=== PATIENT | male | born 1930 | race Caucasian/White ===

== ENCOUNTER 2018-06-30 11:12 | Inpatient (IN) | payer SELFPAY ==
[2018-06-30] MEDS ORDERED: Nitroglycerin 100MG/250ML BOT 250 ML ONE (11:36)
[2018-06-30] MEDS ORDERED: Verapamil 5 MG/2 ML VIAL ONE (11:36)
--- NOTE | 2018-06-30 11:36 | RAD ---
AP CHEST: Date: 06/30/18 HISTORY: Chest pain. FINDINGS: The lungs are clear. No infiltrate seen. Heart size upper normal. Vascular markings upper normal with out evidence of edema or effusion. IMPRESSION: No acute process apparent. POS: TPC
[2018-06-30 11:38] LABS: #Basophils 0.1 thou/uL (0.0-0.2); #Eosinphils 0.1 thou/uL (0.0-0.7); #Lymphocytes 1.8 thou/uL (1.20-3.40); #Monocytes 0.5 thou/uL (0.11-0.59); %Basophils 0.5 % (0.0-1.0); %Eosinophils 0.5 % (0.0-10.0); %Lymphocytes 15.6 % (21.0-51.0); %Monocytes 4.4 % (0.0-10.0); Hemoglobin 13.3 g/dL (14.0-18.0); Mean Corpuscular HGB CONC 33.5 g/dL (32.0-36.0); Mean Corpuscular Volume 95.5 fL (78.0-98.0); Mean Platelet Volume 7.6 fL (7.4-10.4); Platelet Count 184 thou/uL (130-400); RBC Distribution Width 11.9 % (11.5-14.5); Red Blood Cell (RBC) Count 4.16 mill/uL (4.70-6.10); White Blood Cell (WBC) Count 11.4 thou/uL (4.8-10.8)
[2018-06-30 11:48] LABS: Prothrombin Time 13.7 SEC (12.0-14.7)
[2018-06-30 11:55] LABS: ALT (SGPT) 22 U/L (8-55); AST (SGOT) 95 U/L (5-34); Albumin 3.8 g/dL (3.4-4.8); Alkaline Phosphatase 56 U/L (40-150); Anion Gap 15 mmol/L (10-20); BUN (Urea Nitrogen) 26 mg/dL (8.4-25.7); Bilirubin, Total 0.5 mg/dL (0.2-1.2); Calc. Creatinine Clearance 0 mL/min (70-130); Calcium 8.9 mg/dL (7.8-10.44); Carbon Dioxide 20 mmol/L (23-31); Chloride 106 mmol/L (98-107); Estimated GFR-MDRD 47; Globulin 2.9 g/dL (2.4-3.5); Glucose 123 mg/dL (83-110); Potassium 4.2 mmol/L (3.5-5.1); Protein, Total 6.7 g/dL (5.8-8.1); Sodium 137 mmol/L (136-145)
[2018-06-30] MEDS ORDERED: Clopidogrel Bisulfate 300 MG TAB ONE (12:04)
[2018-06-30 12:05] LABS: CKMB 193.8 ng/mL (0-6.6)
[2018-06-30] MEDS ORDERED: Adenosine 6 MG/2 ML VIAL ONE (12:05)
[2018-06-30 12:12] LABS: PTT 173.5 SEC (22.9-36.1)
[2018-06-30 12:26] LABS: Troponin I 80.691 ng/mL (< 0.028)
[2018-06-30 14:11] VITALS: BMI 25.5
[2018-06-30] MEDS ORDERED: Iopamidol 370 76% 100 ML VIAL ONE (15:05)
[2018-06-30] MEDS ORDERED: Iopamidol 370 76% 50 ML VIAL FS ONE (15:05)
[2018-06-30] MEDS ORDERED: Morphine 4 MG/ML VIAL SLOW IVP PRN (17:54)
[2018-06-30] MEDS ORDERED: Nitroglycerin 0.4 MG TAB (25 Tab Bottle) SL PRN (17:54)
--- NOTE | 2018-06-30 18:05 | EKG ---
Test Reason : Blood Pressure : / mmHG Vent. Rate : 067 BPM Atrial Rate : 067 BPM P-R Int : 172 ms QRS Dur : 126 ms QT Int : 424 ms P-R-T Axes : 039 -49 -12 degrees QTc Int : 448 ms Sinus Rhythm with frequent premature ventricular contractions. Left axis deviation Non-specific intra-ventricular conduction block Septal infarct , age undetermined Abnormal ECG Confirmed by MARIEL LUJAN ([id number]) on 06/30/2018 6:05:04 PM Referred By: WALT Confirmed By:MARIEL LUJAN
[2018-06-30 19:20] LABS: CKMB 326.3 ng/mL (0-6.6)
[2018-06-30 19:21] LABS: Troponin I 341.822 ng/mL (< 0.028)
[2018-06-30] MEDS: Atorvastatin Calcium 40 MG TAB PO SCH (21:21)
--- NOTE | 2018-06-30 22:03 | HP ---
CHIEF COMPLAINT: Chest pain. HISTORY OF PRESENT ILLNESS: Mr. Spencer is a pleasant 87-year-old white gentleman who comes to the hospital, transferred from the [place] outpatient facility for an anterior ST-elevation OK. Mr. Spencer felt some chest burning earlier this morning, so he decided to go see his primary care doctor, Dr. Martins, saw him, did an EKG and found ST elevations anteriorly, so he gave him Plavix, aspirin, and TNK, and transferred him over for further care. On my evaluation, he was chest pain free, however, his STs were still elevated, so he was taken directly to the casting house laborer for further care. We chose to do a radial approach given his recent TNK administration. We found this 90% stenosis of the proximal LAD, which was successfully opened and stented. He did very well. He received a drug-eluting stent. He is not having any chest pain, tightness, or pressure. No shortness of breath. PAST MEDICAL HISTORY: He takes a thyroid medication. He is unsure of what it is for. He does not know if it is for hyper or hypothyroidism. PAST SURGICAL HISTORY: Bilateral cataract surgery. SOCIAL HISTORY: No alcohol, tobacco, or drugs. FAMILY HISTORY: No significant early coronary artery disease. His father had a CVA in his 80s. OUTPATIENT MEDICATIONS: Thyroid medication, unknown if it is methimazole or thyroxine. ALLERGIES: NO KNOWN DRUG ALLERGIES. REVIEW OF SYSTEMS: 12-point review of systems was done and was found to be negative other than stated in the history of present illness. PHYSICAL EXAMINATION: VITAL SIGNS: Temperature 97.6, pulse 66, respiratory rate 18, saturating 100% on 2 L nasal cannula. Blood pressure 130/85. GENERAL: Awake, alert, and oriented x3, in no distress. HEENT: Normocephalic, atraumatic. NECK: Supple. LUNGS: Clear. CARDIOVASCULAR: S1, S2. No S3 or S4. No murmurs. ABDOMEN: Soft. Positive bowel sounds. EXTREMITIES: No edema. SKIN: Warm and dry. LABORATORY WORK: Reviewed. CBC with white count 11, hemoglobin 13, hematocrit 39, platelet count 184. Coags reviewed. Chemistries were reviewed. Initial troponin was 80.9, up to 341.8 now with a CK-MB of 193, initially up to 326. His BUN was 22, creatinine was 1.4, GFR 47. Normal sodium and potassium. AST was high at 95, ALT 22, alkaline phosphatase was normal, albumin of 3.8. EKG was reviewed. ASSESSMENT: 1. Anterior ST-elevation myocardial infarction. 2. Status post thrombolytics. 3. Status post drug-eluting stent to the LAD. PLAN: 1. Continue dual antiplatelet therapy with Plavix and aspirin. 2. We will do a high dose statin and we will start a beta carrol and JOSE inhibitor as blood pressure allow in the next 24 to 48 hours. 3. Echocardiogram to be done. 4. Full code. 5. PPI for stress ulcer prophylaxis. 6. Lovenox subcu for DVT prophylaxis. Job ID: [id number]
[2018-07-01 00:58] LABS: CKMB 184.2 ng/mL (0-6.6); Critical Call CKMB RESULT DECREASING
[2018-07-01 01:14] LABS: Critical Call Chem Troponin I RESULT DECREASING; Troponin I 128.096 ng/mL (< 0.028)
[2018-07-01 04:44] LABS: #Eosinphils 0.2 thou/uL (0.0-0.7); #Lymphocytes 2.3 thou/uL (1.20-3.40); #Neutrophils 7.3 thou/uL (1.40-6.50); %Basophils 0.4 % (0.0-1.0); %Eosinophils 1.4 % (0.0-10.0); %Lymphocytes 21.4 % (21.0-51.0); %Neutrophils 67.8 % (42.0-75.0); Hemoglobin 12.6 g/dL (14.0-18.0); Mean Corpuscular HGB CONC 34.8 g/dL (32.0-36.0); Mean Platelet Volume 7.8 fL (7.4-10.4); Platelet Count 173 thou/uL (130-400); RBC Distribution Width 12.1 % (11.5-14.5); Red Blood Cell (RBC) Count 3.83 mill/uL (4.70-6.10); White Blood Cell (WBC) Count 10.7 thou/uL (4.8-10.8)
[2018-07-01 05:05] LABS: ALT (SGPT) 34 U/L (8-55); AST (SGOT) 164 U/L (5-34); Albumin 3.5 g/dL (3.4-4.8); Alkaline Phosphatase 45 U/L (40-150); Anion Gap 15 mmol/L (10-20); BUN (Urea Nitrogen) 22 mg/dL (8.4-25.7); Bilirubin, Total 0.7 mg/dL (0.2-1.2); Calc. Creatinine Clearance 44 mL/min (70-130); Calcium 8.6 mg/dL (7.8-10.44); Carbon Dioxide 22 mmol/L (23-31); Chloride 108 mmol/L (98-107); Cholesterol 156 mg/dl (< 200 Desired); Estimated GFR-MDRD 53; Globulin 2.5 g/dL (2.4-3.5); Glucose 108 mg/dL (83-110); HDL Cholesterol 39 mg/dL (>60 Neg Risk); LDL Cholesterol, Calculated 95 mg/dL; Potassium 3.8 mmol/L (3.5-5.1); Sodium 141 mmol/L (136-145); Triglycerides 109 mg/dL (Less than 150)
[2018-07-01] MEDS ORDERED: Prevnar 13-Val Conj/PF 0.5 ML SYRINGE IM ONE (09:00)
[2018-07-01] MEDS: Aspirin 325 MG TAB PO SCH (09:07)
[2018-07-01] MEDS: Enoxaparin Sodium 30 MG/0.3 ML SYRINGE SC SCH (09:07)
[2018-07-01] MEDS: Clopidogrel Bisulfate 75 MG TAB PO SCH (09:07)
[2018-07-01] MEDS: Atorvastatin Calcium 40 MG TAB PO SCH (19:50)
--- NOTE | 2018-07-01 21:08 | PDOC.CTH ---
Cardiology Progress Note - Subjective Doing better. No chest pain, tightness, pressure. - Objective Vital Signs Temp Pulse Pulse Pulse Resp BP BP 07/01/18 19:15 97.7 F 69 16 07/01/18 17:55 97.9 F 67 16 07/01/18 16:00 99.2 F 07/01/18 12:00 97.7 F 07/01/18 09:50 72 67 111/87 138/73 BP Pulse Ox 07/01/18 19:15 141/75 H 94 L 07/01/18 17:55 151/87 H 94 L 07/01/18 16:00 07/01/18 12:00 07/01/18 09:50 Admit Weight 163 lb 5.8 oz Weight 163 lb 5.8 oz 06/30/18 07/01/18 07/02/18 06:59 06:59 06:59 Intake Total 465 780 Output Total 1625 1000 Balance -1160 -220 - Physical Examination General/Neuro: alert & oriented x3, NAD Neck: no JVD present Lungs: CTA, unlabored respirations Heart: RRR Abdomen: NT/ND Extremities: other: (no edema) - Telemetry Telemetry Rhythm: NSR - Labs Result Diagrams: 07/01/18 04:12 07/01/18 04:12 Troponin/CKMB CK-MB (CK-2) 184.2 ng/mL (0-6.6) H* 07/01/18 00:26 Troponin I 128.096 ng/mL (< 0.028) H* 07/01/18 00:26 - Assessment/Plan 1. Acute anterior STEMI 2. s/p TPA and then ROCIO to the LAD. PLAN: - Will transition to Telemtry. - Continue HUMAIRA - Large MN based on troponins and CKMB. - Will add low dose Coreg.
[2018-07-02 05:07] LABS: #Eosinphils 0.2 thou/uL (0.0-0.7); #Monocytes 0.9 thou/uL (0.11-0.59); #Neutrophils 6.2 thou/uL (1.40-6.50); %Basophils 0.3 % (0.0-1.0); %Eosinophils 2.2 % (0.0-10.0); %Lymphocytes 21.8 % (21.0-51.0); %Monocytes 9.6 % (0.0-10.0); %Neutrophils 66.1 % (42.0-75.0); Hemoglobin 12.6 g/dL (14.0-18.0); Mean Corpuscular HGB CONC 34.3 g/dL (32.0-36.0); Mean Corpuscular Hemoglobin 32.6 pg (27.0-31.0); Mean Corpuscular Volume 94.8 fL (78.0-98.0); Platelet Count 170 thou/uL (130-400); Red Blood Cell (RBC) Count 3.86 mill/uL (4.70-6.10); White Blood Cell (WBC) Count 9.3 thou/uL (4.8-10.8)
[2018-07-02 05:28] LABS: Anion Gap 12 mmol/L (10-20); BUN (Urea Nitrogen) 19 mg/dL (8.4-25.7); Calc. Creatinine Clearance 45 mL/min (70-130); Calcium 8.3 mg/dL (7.8-10.44); Carbon Dioxide 25 mmol/L (23-31); Chloride 106 mmol/L (98-107); Estimated GFR-MDRD 54; Glucose 107 mg/dL (83-110); Potassium 3.9 mmol/L (3.5-5.1); Sodium 139 mmol/L (136-145)
--- NOTE | 2018-07-02 08:43 | PDOC.CTH ---
Cardiology Progress Note - Subjective No new issues. No chest pain, tightness ,pressure, SOB. He has been walking around without issues. - Objective Vital Signs Temp Pulse Resp BP Pulse Ox 07/02/18 08:00 98.3 F 93 18 115/68 92 L 07/02/18 04:00 98.4 F 78 16 99/70 93 L Admit Weight 163 lb 5.8 oz Weight 163 lb 5.8 oz 07/01/18 07/02/18 07/03/18 06:59 06:59 06:59 Intake Total 465 1030 Output Total 1625 1000 Balance -1160 30 - Physical Examination General/Neuro: alert & oriented x3, NAD Neck: no JVD present Lungs: CTA, unlabored respirations Heart: RRR Abdomen: NT/ND Extremities: other: (no edema) - Telemetry Telemetry Rhythm: NSR - Labs Result Diagrams: 07/02/18 04:29 07/02/18 04:29 Troponin/CKMB CK-MB (CK-2) 184.2 ng/mL (0-6.6) H* 07/01/18 00:26 Troponin I 128.096 ng/mL (< 0.028) H* 07/01/18 00:26 - Assessment/Plan 1. Acute anterior STEMI 2. s/p TPA and then ROCIO to the LAD. PLAN: - Echo pending. - Continue HUMAIRA - Large VT based on troponins and CKMB. - Cannot add ACEI due to borderline low BP. - Tolerating low dose coreg. - Continue high dose statins.
[2018-07-02] MEDS: Enoxaparin Sodium 30 MG/0.3 ML SYRINGE SC SCH (08:59)
[2018-07-02] MEDS: Aspirin 325 MG TAB PO SCH (08:59)
[2018-07-02] MEDS: Carvedilol 3.125 MG TAB PO SCH ×2 (08:59→16:33)
[2018-07-02] MEDS: Clopidogrel Bisulfate 75 MG TAB PO SCH (09:00)
[2018-07-02] MEDS: Atorvastatin Calcium 40 MG TAB PO SCH (19:48)
[2018-07-02] MEDS: Apixaban 2.5 MG TAB PO SCH (19:49)
[2018-07-03 05:12] LABS: #Eosinphils 0.2 thou/uL (0.0-0.7); #Lymphocytes 1.8 thou/uL (1.20-3.40); %Basophils 0.2 % (0.0-1.0); %Eosinophils 2.2 % (0.0-10.0); %Lymphocytes 18.1 % (21.0-51.0); %Neutrophils 69.4 % (42.0-75.0); Hemoglobin 12.9 g/dL (14.0-18.0); Mean Corpuscular Hemoglobin 33.3 pg (27.0-31.0); Mean Corpuscular Volume 95.3 fL (78.0-98.0); Mean Platelet Volume 7.8 fL (7.4-10.4); Platelet Count 171 thou/uL (130-400); RBC Distribution Width 11.9 % (11.5-14.5); Red Blood Cell (RBC) Count 3.87 mill/uL (4.70-6.10); White Blood Cell (WBC) Count 10.1 thou/uL (4.8-10.8)
[2018-07-03 05:32] LABS: Anion Gap 13 mmol/L (10-20); BUN (Urea Nitrogen) 22 mg/dL (8.4-25.7); Calc. Creatinine Clearance 38 mL/min (70-130); Calcium 8.5 mg/dL (7.8-10.44); Carbon Dioxide 27 mmol/L (23-31); Chloride 104 mmol/L (98-107); Estimated GFR-MDRD 44; Glucose 110 mg/dL (83-110); Potassium 3.9 mmol/L (3.5-5.1); Sodium 140 mmol/L (136-145)
[2018-07-03] MEDS: Clopidogrel Bisulfate 75 MG TAB PO SCH (09:26)
[2018-07-03] MEDS: Carvedilol 3.125 MG TAB PO SCH ×2 (09:27→17:31)
[2018-07-03] MEDS: Apixaban 2.5 MG TAB PO SCH (09:27)
[2018-07-03 15:51] VITALS: BP 116/75; TEMP 98.2
--- NOTE | 2018-07-04 02:56 | DIS ---
DATE OF ADMISSION: 06/30/2018 DATE OF DISCHARGE: 07/03/2018 DISCHARGE DIAGNOSES: 1. Acute anterior ST-elevation myocardial infarction, treated with tPA in [place] and placement of drug-eluting stent in the left anterior descending. 2. Ischemic cardiomyopathy with ejection fraction of 30% to 35% with anterior and apical wall akinesis. Discharged with a Lifevest. 3. 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 4. Hypercholesterolemia. 5. Hypothyroidism. DISCHARGE MEDICATIONS: 1. Levothyroxine 0.025 mg daily. 2. Eliquis 2.5 mg b.i.d. 3. Aspirin 81 daily. 4. Plavix 75 mg q.a.m. 5. Atorvastatin 80 mg daily. 6. Carvedilol 3.125 b.i.d. 7. Nitroglycerin 0.4 mg p.r.n. 8. Pantoprazole 40 mg daily. DISCHARGE DISPOSITION: The patient will follow up with Dr. Sheridan. HOSPITAL COURSE: Mr. Spencer presented in [place] with chest pain, he had ST-elevation anteriorly. He was given Plavix, aspirin, and TNK and transferred for further care. When he arrived, he was chest pain free, however, his ST segments were still elevated. He was taken directly to the freezer laboratory technician. He was cathed through a radial approach. He had 90% stenosis of the proximal LAD and Synergy 3.0 x 12 mm stent was placed. Echocardiogram revealed ejection fraction of 30% to 35% with akinesis of the apex, anterior septal, and anterior wall. There was a small laminated thrombus at the apex. Mitral annular calcification, mild mitral regurgitation, aortic valve sclerosis, and mild tricuspid regurgitation. He was therefore placed on Eliquis because of the apical thrombus. After his first dose of Eliquis, later that evening he began to have left leg pain, pain in his knee radiating to his toe. His stated that he has severe left knee arthritis and has had problems in the past and is contemplating knee replacement. However, the following day, this was totally resolved and he was symptom free. Mr. Spencer felt that the Eliquis was a cause of this. However, with resolution of the pain, it is doubtful that there was some type of a bleeding complication that caused the pain. He was offered that he stay another night to continue to monitor this situation. However, he is quite insistent that he leave. He was encouraged to be more active since he has been very sedentary since he has been here. Job ID: [id number] MTDD
--- NOTE | 2018-07-04 17:11 | DIS ---
DATE OF ADMISSION: 06/30/2018 DATE OF DISCHARGE: 07/03/2018 ADDENDUM: Due to ejection fraction of 30-35%, Mr. Spencer was fitted with a LifeVest prior to discharge. Job ID: [id number]
== END 2018-07-03 17:40 | disposition home or self-care (01) | DRG 247 ==
LOC: ERS 11:12 → CCU 11:20 → 2SE 07-01 17:11
PROVIDERS: ADMIT Internal Medicine Cardiovascular Disease; ATTEND Internal Medicine Cardiovascular Disease
PROC: 027034Z Dilation of Coronary Artery, One Artery with Drug-eluting Intraluminal Device, Percutaneous Approach (ICD-10-PCS; principal; 2018-06-30)
PROC: 02C03ZZ Extirpation of Matter from Coronary Artery, One Artery, Percutaneous Approach (ICD-10-PCS; 2018-06-30)
PROC: 3E07317 Introduction of Other Thrombolytic into Coronary Artery, Percutaneous Approach (ICD-10-PCS; 2018-06-30)
PROC: B2151ZZ Fluoroscopy of Left Heart using Low Osmolar Contrast (ICD-10-PCS; 2018-06-30)
PROC: 4A023N7 Measurement of Cardiac Sampling and Pressure, Left Heart, Percutaneous Approach (ICD-10-PCS; 2018-06-30)
DX: I21.09 ST elevation (STEMI) myocardial infarction involving other coronary artery of anterior wall (principal); I82.890 Acute embolism and thrombosis of other specified veins; I25.5 Ischemic cardiomyopathy; E78.00 Pure hypercholesterolemia, unspecified; E03.9 Hypothyroidism, unspecified; Z79.52 Long term (current) use of systemic steroids; Z79.82 Long term (current) use of aspirin; Z79.02 Long term (current) use of antithrombotics/antiplatelets
CPT/HCPCS: 36415; 71045; 80048; 80053; 80061; 82553; 83880; 84484; 85025; 85347; 85610; 85730; 92941; 93005; 93010; 93306; 93460; 93798; C1769; C1874; C9606; J0153; J1650